=== PATIENT | female | born 1980 | race Caucasian/White ===

== ENCOUNTER 2018-08-21 13:30 | Emergency (ER) | payer MEDICAID ==
[~2018-08-21] VITALS: Ht 170.2 cm; Wt 56.8 kg
[2018-08-21 14:22] LABS: BASOPHILS % (AUTO) 0.5 % (0-1); EOSINOPHILS % (AUTO) 0.2 % (0-6); HEMATOCRIT 37.6 % (35.0-45.0); HEMOGLOBIN 12.2 g/dl (12.0-16.0); LYMPHOCYTES # (AUTO) 1.7 X10'3 (1.1-4.8); LYMPHOCYTES % (AUTO) 29.6 % (21-51); MEAN CORPUSCULAR HEMOGLOBIN 27.3 PG (27.0-31.0); MEAN CORPUSCULAR HGB CONC 32.5 g/dL (33.0-36.5); MEAN PLATELET VOLUME 7.8 FL (7.4-10.4); MONOCYTES # (AUTO) 0.4 X10'3 (0-0.9); MONOCYTES % (AUTO) 7.1 % (2-12); NEUTROPHILS # (AUTO) 3.6 X10'3 (1.8-7.7); NEUTROPHILS % (AUTO) 62.6 % (42-75); PLATELET COUNT 283 X10'3 (140-440); RED BLOOD COUNT 4.48 X10'6 (4.20-5.60); RED CELL DISTRIBUTION WIDTH 17.1 % (11.5-14.5); WHITE BLOOD COUNT 5.7 X10'3 (4.5-11.0)
[2018-08-21 14:30] LABS: CLARITY,URINE CLEAR (Clear); COLOR,URINE YELLOW (Yellow); GLUCOSE, URINE NEGATIVE (Neg); KETONES,URINE NEGATIVE (Neg); LEUKOCYTE ESTERASE ,URINE NEGATIVE (Neg); NITRITES, URINE NEGATIVE (Neg); OCCULT BLOOD,URINE NEGATIVE (Neg); PH,URINE 6.5 (4.8-8.0); PROTEIN,URINE NEGATIVE (Neg); UROBILINOGEN,URINE 0.2 E.U/dL (0.2-1.0)
[2018-08-21 14:35] LABS: UA COLLECTION TYPE CLN CATCH MIDSTREAM
[2018-08-21 14:39] LABS: ALANINE AMINOTRANSFERASE 25 U/L (12-78); ALBUMIN 4.1 G/DL (3.4-5.0); ALBUMIN/GLOBULIN RATIO 1.3 (1.1-1.5); ALKALINE PHOSPHATASE 66 IU/L (46-116); ANION GAP 8 (8-16); ASPARTATE AMINO TRANSFERASE 17 U/L (10-37); BILIRUBIN,TOTAL 0.5 MG/DL (0.1-1.0); BLOOD UREA NITROGEN 10 MG/DL (7-18); BUN/CREATININE RATIO 11.8 (6.6-38.0); CALCIUM 9.2 MG/DL (8.5-10.1); CHLORIDE 104 MMOL/L (99-107); CREATININE 0.85 MG/DL (0.40-0.90); GLUCOSE 99 MG/DL (70-104); POTASSIUM 3.5 MMOL/L (3.5-5.1); SODIUM 137 MMOL/L (135-145); TOTAL CARBON DIOXIDE 24.6 MMOL/L (24-32); TOTAL PROTEIN 7.3 G/DL (6.4-8.2); eGFR 74 ML/MIN
[2018-08-21 15:21] LABS: LIPASE 88 U/L (73-393)
[2018-08-21] MEDS ORDERED: morphine 4 MG/ML inj SYRINge IV ONE (15:25)
[2018-08-21] MEDS ORDERED: normal saline 1000ML IV soln IVB ONE (15:25)
[2018-08-21] MEDS ORDERED: proCHLORperazine 10 MG/2 ml inj IV ONE (15:25)
[2018-08-21 16:22] VITALS: BP 150/86
[2018-08-21] MEDS ORDERED: ONDA4TAB6 PO (16:34)
== END 2018-08-21 16:47 | disposition home or self-care (01) ==
LOC: ER 13:31
DX: R10.11 Right upper quadrant pain (principal); F12.90 Cannabis use, unspecified, uncomplicated; Z90.49 Acquired absence of other specified parts of digestive tract; Z90.710 Acquired absence of both cervix and uterus; Z98.890 Other specified postprocedural states; Z88.1 Allergy status to other antibiotic agents
CPT/HCPCS: 36415; 80053; 81003; 83690; 85025; 85610; 96374; 96375; 99283; J0780; J2270; J7030

== ENCOUNTER 2018-09-09 11:24 | Emergency (ER) | payer MEDICAID ==
[~2018-09-09] VITALS: Ht 170.2 cm; Wt 56.8 kg
[~2018-09-09 11:24] MED LIST: ONDA4TAB6 PO
[2018-09-09 11:57] LABS: BASOPHILS % (AUTO) 0.4 % (0-1); EOSINOPHILS % (AUTO) 0.2 % (0-6); HEMATOCRIT 37.6 % (35.0-45.0); HEMOGLOBIN 12.2 g/dl (12.0-16.0); LYMPHOCYTES # (AUTO) 1.4 X10'3 (1.1-4.8); LYMPHOCYTES % (AUTO) 21.6 % (21-51); MEAN CORPUSCULAR HGB CONC 32.5 g/dL (33.0-36.5); MEAN CORPUSCULAR VOLUME 83.3 FL (78-98); MEAN PLATELET VOLUME 8.2 FL (7.4-10.4); MONOCYTES # (AUTO) 0.4 X10'3 (0-0.9); MONOCYTES % (AUTO) 5.6 % (2-12); NEUTROPHILS # (AUTO) 4.7 X10'3 (1.8-7.7); NEUTROPHILS % (AUTO) 72.2 % (42-75); PLATELET COUNT 306 X10'3 (140-440); RED BLOOD COUNT 4.51 X10'6 (4.20-5.60); RED CELL DISTRIBUTION WIDTH 17.1 % (11.5-14.5); WHITE BLOOD COUNT 6.5 X10'3 (4.5-11.0)
[2018-09-09 12:05] LABS: URINE HCG NEGATIVE (NEG)
[2018-09-09 12:08] LABS: CLARITY,URINE SLIGHTLY CLOUDY (Clear); COLOR,URINE STRAW (Yellow); GLUCOSE, URINE NEGATIVE (Neg); KETONES,URINE NEGATIVE (Neg); LEUKOCYTE ESTERASE ,URINE NEGATIVE (Neg); NITRITES, URINE NEGATIVE (Neg); OCCULT BLOOD,URINE NEGATIVE (Neg); PH,URINE 5.5 (4.8-8.0); PROTEIN,URINE NEGATIVE (Neg); UROBILINOGEN,URINE 0.2 E.U/dL (0.2-1.0)
[2018-09-09 12:12] LABS: ALANINE AMINOTRANSFERASE 24 U/L (12-78); ALBUMIN/GLOBULIN RATIO 1.1 (1.1-1.5); ALKALINE PHOSPHATASE 76 IU/L (46-116); ANION GAP 8 (8-16); ASPARTATE AMINO TRANSFERASE 16 U/L (10-37); BILIRUBIN,TOTAL 0.4 MG/DL (0.1-1.0); BLOOD UREA NITROGEN 8 MG/DL (7-18); BUN/CREATININE RATIO 10.4 (6.6-38.0); CALCIUM 8.9 MG/DL (8.5-10.1); CHLORIDE 105 MMOL/L (99-107); CREATININE 0.77 MG/DL (0.40-0.90); GLUCOSE 96 MG/DL (70-104); LIPASE 115 U/L (73-393); POTASSIUM 3.9 MMOL/L (3.5-5.1); SODIUM 139 MMOL/L (135-145); TOTAL CARBON DIOXIDE 25.7 MMOL/L (24-32); TOTAL PROTEIN 7.5 G/DL (6.4-8.2); eGFR 83 ML/MIN
[2018-09-09 12:16] LABS: UA COLLECTION TYPE CLN CATCH MIDSTREAM
[2018-09-09 12:22] LABS: SQUAMOUS EPITHELIAL CELL,UR MANY /LPF (FEW)
[2018-09-09 12:23] LABS: BACTERIA,URINE 1+ /HPF (Neg); HYALINE CASTS 0-3 /LPF (NEGATIVE); MUCUS STRANDS FEW /LPF (Neg); RBC,URINE 0-2 /HPF (0-2); WBC,URINE 0-4 /HPF (0-4)
[2018-09-09] MEDS ORDERED: ketorolac tromethamine 15mg/ml inj. IV ONE (12:55)
[2018-09-09] MEDS ORDERED: normal saline 1000ML IV soln IVB ONE (12:55)
[2018-09-09] MEDS ORDERED: proCHLORperazine 10 MG/2 ml inj IV ONE (12:55)
[2018-09-09] MEDS ORDERED: PROC25SU31 RC (13:07)
[2018-09-09] MEDS ORDERED: HYDR-4353 PO (13:07)
[2018-09-09 14:07] VITALS: BP 124/75
== END 2018-09-09 14:08 | disposition home or self-care (01) ==
LOC: ER 11:24
DX: R10.11 Right upper quadrant pain (principal); R11.2 Nausea with vomiting, unspecified; F12.90 Cannabis use, unspecified, uncomplicated; Z90.49 Acquired absence of other specified parts of digestive tract; Z90.710 Acquired absence of both cervix and uterus; Z98.890 Other specified postprocedural states; Z88.1 Allergy status to other antibiotic agents; Z79.899 Other long term (current) drug therapy
CPT/HCPCS: 36415; 80053; 81001; 81025; 83690; 85025; 85610; 96374; 96375; 99285; J0780; J1885; J7030

== ENCOUNTER → 2023-10-14 | Outpatient (CLI) | payer MEDICAID | END | disposition home or self-care (01) | LOC: RAD 08:20 | PROVIDERS: ATTEND Nurse Practitioner | DX: M25.552 Pain in left hip (principal); M54.50 Low back pain, unspecified | CPT/HCPCS: 72110; 73502 ==

== ENCOUNTER 2025-02-28 09:53 | Outpatient (CLI) | payer MEDICAID ==
--- NOTE | 2025-03-01 09:19 | RADIOLOGY REPORT ---
CLINICAL INFORMATION: Cervical radiculopathy. TECHNIQUE: Multisequence multiplanar MRI images of the cervical spine were obtained without contrast. COMPARISON: None FINDINGS: Bones: Straightening of the normal cervical lordosis. No significant spondylolisthesis. Vertebral body heights are maintained. Posterior elements are intact. No acute fracture. No focal suspicious marrow signal abnormality. Spinal cord: Spinal cord is normal in signal intensity and morphology. Paraspinal soft tissues: Paraspinal and prevertebral soft tissues are unremarkable. Other: T2 hyperintense nodule in the left thyroid lobe measures up to 1.9 cm. Cervical disc levels: C2-C3: Disc desiccation. No significant spinal canal or neural foraminal stenosis. C3-C4: Disc desiccation. No significant spinal canal stenosis. Facet and uncinate hypertrophy with moderate left neural foraminal stenosis. C4-C5: Disc desiccation with mild disc bulge mildly flattening the ventral aspect of the thecal sac. No significant spinal canal stenosis or neural foraminal stenosis. C5-C6: Disc desiccation. Mild disc space narrowing and diffuse disc bulge mildly indenting the ventral aspect of the thecal sac. Partial effacement of the lateral recesses. Mild spinal canal stenosis. Facet and uncinate hypertrophy with mild to moderate right and mild left neural foraminal stenoses. C6-C7: Disc desiccation with moderate disc space narrowing and diffuse disc bulge mildly indenting the ventral aspect of the thecal sac, causing [id number] spinal canal stenosis and partial effacement of the lateral recesses. Facet and uncinate hypertrophy with moderate left and [id number] right neural foraminal stenoses. C7-T1: Disc desiccation. No significant spinal canal stenosis. Facet and uncinate hypertrophy with moderate left neural foraminal stenosis. IMPRESSION: 1. Degenerative disc disease and facet/ uncinate disease in the cervical spine with associated spinal canal, subarticular, and neural foraminal stenoses as detailed above. 2. Straightening of the normal cervical lordosis with no significant spondylolisthesis. 3. Left thyroid nodule. Based on size, recommend thyroid ultrasound per ACR white paper on incidentally detected thyroid nodules.
== END 2025-02-28 23:59 | disposition home or self-care (01) ==
LOC: MRI02 09:53
PROVIDERS: ATTEND Nurse Practitioner
DX: M47.22 Other spondylosis with radiculopathy, cervical region (principal); M48.02 Spinal stenosis, cervical region; M50.123 Cervical disc disorder at C6-C7 level with radiculopathy; M47.814 Spondylosis without myelopathy or radiculopathy, thoracic region; M48.04 Spinal stenosis, thoracic region; E04.1 Nontoxic single thyroid nodule
CPT/HCPCS: 72141